=== PATIENT | female | born 1980 | race American Indian/Alaskan Native ===

== ENCOUNTER 2018-11-26 07:52 | Emergency (ER) | payer SELFPAY ==
[2018-11-26 08:30] VITALS: BP 149/91
--- NOTE | 2018-11-26 09:00 | Emergency Department Report ---
ED Abdominal Pain HPI - General Chief Complaint: Abdominal Pain Stated Complaint: ABD PAIN Time Seen by Provider: 11/26/18 08:58 Source: patient Mode of arrival: Ambulatory Limitations: No Limitations - History of Present Illness Initial Comments: Patient is a 38-year-old female that presents emergency room with complaints of bilateral lower abdominal pain 4 days. Patient states the abdominal pain is a 5 out of 10 and is better with rest and worse with movement. Patient denies nausea vomiting. Patient denies vaginal discharge. Patient denies vaginal bleeding. Patient states that she's had ectopic pregnancies in the past. Patient states she's had a bilateral tubal ligation. Patient states she is sexually active. Patient's last menstrual period was one week ago. 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 -: Sudden Location: LLQ, RLQ Migration to: no migration Severity: moderate Severity scale (0 -10): 5 Quality: cramping, aching Consistency: constant Improves With: rest Worsens With: movement Associated Symptoms: denies: nausea, vomiting, diarrhea, fever, chills, constipation, dysuria, hematemesis, hematochezia, melena, hematuria, anorexia, syncope - Related Data LMP (females 10-50): last week Previous Rx's Medication Instructions Recorded Last Taken Type Azithromycin [Zithromax Z-MARY] 250 mg PO DAILY #1 pkg 08/13/14 Unknown Rx Loratadine [Claritin] 10 mg PO DAILY #30 tablet 08/13/14 Unknown Rx Promethazine /Codeine 5 ml PO Q6H PRN #150 udc 08/13/14 Unknown Rx [Phenergan/Codeine 6.25-10 mg/5 ml] predniSONE [Deltasone] 50 mg PO QDAY #5 tab 08/13/14 Unknown Rx Ibuprofen 800 mg PO Q8HR PRN #20 tablet 11/26/18 Unknown Rx Sulfamethoxazole/Trimethoprim 1 each PO BID 7 Days #14 tablet 11/26/18 Unknown Rx [Bactrim DS TAB] Allergies Allergy/AdvReac Type Severity Reaction Status Date / Time No Known Allergies Allergy Verified 11/26/18 07:53 ED Review of Systems ROS: Stated complaint: ABD PAIN Other details as noted in HPI Constitutional: denies: chills, fever Eyes: denies: eye pain, eye discharge, vision change ENT: denies: ear pain, throat pain Respiratory: denies: cough, shortness of breath, wheezing Cardiovascular: denies: chest pain, palpitations Endocrine: no symptoms reported Gastrointestinal: abdominal pain. denies: nausea, diarrhea Genitourinary: denies: urgency, dysuria, discharge Musculoskeletal: denies: back pain, joint swelling, arthralgia Skin: denies: rash, lesions Neurological: denies: headache, weakness, paresthesias Psychiatric: denies: anxiety, depression Hematological/Lymphatic: denies: easy bleeding, easy bruising ED Past Medical Hx - Past Medical History Previous Medical History?: No Additional medical history: ectopic preg. - Surgical History Past Surgical History?: Yes Additional Surgical History: ectopic "both tubes removed" - Family History Family history: no significant - Social History Smoking Status: Never Smoker Substance Use Type: Alcohol - Medications Home Medications: Home Medications Medication Instructions Recorded Confirmed Last Taken Type Azithromycin [Zithromax Z-MARY] 250 mg PO DAILY #1 pkg 08/13/14 Unknown Rx Loratadine [Claritin] 10 mg PO DAILY #30 tablet 08/13/14 Unknown Rx Promethazine /Codeine 5 ml PO Q6H PRN #150 udc 08/13/14 Unknown Rx [Phenergan/Codeine 6.25-10 mg/5 ml] predniSONE [Deltasone] 50 mg PO QDAY #5 tab 08/13/14 Unknown Rx Ibuprofen 800 mg PO Q8HR PRN #20 tablet 11/26/18 Unknown Rx Sulfamethoxazole/Trimethoprim 1 each PO BID 7 Days #14 tablet 11/26/18 Unknown Rx [Bactrim DS TAB] ED Physical Exam - General Limitations: No Limitations General appearance: alert, in no apparent distress - Head Head exam: Present: atraumatic, normocephalic - Eye Eye exam: Present: normal appearance - ENT ENT exam: Present: mucous membranes moist - Neck Neck exam: Present: normal inspection - Respiratory Respiratory exam: Present: normal lung sounds bilaterally. Absent: respiratory distress - Cardiovascular Cardiovascular Exam: Present: regular rate, normal rhythm. Absent: systolic m urmur, diastolic murmur, rubs, gallop - GI/Abdominal GI/Abdominal exam: Present: soft, tenderness (merlyn lower quad ttp), normal bowel sounds - Extremities Exam Extremities exam: Present: normal inspection - Back Exam Back exam: Present: normal inspection - Neurological Exam Neurological exam: Present: alert, oriented X3 - Psychiatric Psychiatric exam: Present: normal affect, normal mood - Skin Skin exam: Present: warm, dry, intact, normal color. Absent: rash ED Course Vital Signs 11/26/18 11/26/18 08:12 09:05 Temperature 98.2 F Pulse Rate 85 Respiratory 16 15 Rate Blood Pressure 149/91 O2 Sat by Pulse 98 Oximetry - Reevaluation(s) Reevaluation #1: Discussed all results the patient. Patient given discharge instructions. Patient stable for discharge. Patient voiced understanding of all discharge instructions and results. 11/26/18 11:25 ED Medical Decision Making - Lab Data Result diagrams: 11/26/18 09:26 11/26/18 09:26 - Radiology Data Radiology results: report reviewed PROCEDURE: CT ABDOMEN PELVIS WO CON TECHNIQUE: Multiple contrast axial images were obtained from the lung bases to the pubic symphysis without administration of IV contrast. Reformatted sagittal and coronal images were available for review. HISTORY: abd pain COMPARISONS: None. FINDINGS: Lower thorax: Normal. Liver and biliary tree: Normal noncontrast appearance. Gallbladder: Normal. No calcified gallstones. No pericholecystic fluid or gallbladder wall thickening Spleen: Normal noncontrast appearance. Pancreas: Normal noncontrast appearance. Adrenal glands: Normal noncontrast appearance. Kidneys, ureters, and bladder: 2.1 cm low-density lesion in the inferior pole of the right kidney. 2.4 center low-density lesion in the superior pole of the right kidney No hydronephrosis. No renal or ureteral calculi. Bowel:No focal wall thickening. No evidence of obstruction. Normal appendix without surrounding inflammatory change Peritoneum:No significant lymphadenopathy. No free air or free fluid. Pelvic organs:Normal. Vasculature: Normal noncontrast appearance. Abdominal wall: Normal. Bones: Normal. IMPRESSION: No acute intra-abdominal pathology. 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 Recommend further evaluation with nonemergent ultrasound. - Medical Decision Making Patient is a 38-year-old female presents emergency with lower abdominal pain. Patient had a CT done and was negative for acute findings. Patient's UA is mildly positive for UTI. Patient will be treated with antibiotics. Patient also had complaints of irregular periods and will be referred to an RESPIRATORY THERAPIST for further outpatient treatment. Patient's labs unremarkable. Patient is stable for discharge. - Differential Diagnosis dominant. Ovarian cyst. Irregular period. UTI. Critical care attestation.: If time is entered above; I have spent that time in minutes in the direct care of this critically ill patient, excluding procedure time. ED Disposition Clinical Impression: Abdominal pain Qualifiers: Abdominal location: lower abdomen, unspecified Qualified Code(s): R10.30 - Lower abdominal pain, unspecified UTI (urinary tract infection) Qualifiers: Urinary tract infection type: acute cystitis Hematuria presence: with hematuria Qualified Code(s): N30.01 - Acute cystitis with hematuria Disposition: TO HOME OR SELFCARE Is pt being admited?: No Does the pt Need Aspirin: No Condition: Stable Instructions: Abdominal Pain (ED) Additional Instructions: Patient to follow up with primary care in 2-3 days. Patient to return to ER if condition worsens. Patient's take meds as directed. Patient to see RESPIRATORY THERAPIST for further evaluation and treatment within 2-3 days. Patient to take Tylenol or ibuprofen when necessary for pain. Patient to increase water Prescriptions: Sulfamethoxazole/Trimethoprim [Bactrim DS TAB] 1 each PO BID 7 Days #14 tablet Ibuprofen 800 mg PO Q8HR PRN #20 tablet PRN Reason: pain Referrals: CHRISTA LAW MD [Primary Care Provider] - 2-3 Days Time of Disposition: 11:33
[2018-11-26 09:52] LABS: Basophils % (Auto) 0.9 % (0.0-1.8); Eosinophils % (Auto) 0.7 % (0.0-4.3); Hematocrit 31.1 % (30.3-42.9); Hemoglobin 10.2 gm/dl (10.1-14.3); Lymphocytes # (Auto) 1.6 K/mm3 (1.2-5.4); Mean Corpuscular HGB Conc 33 % (30-34); Mean Corpuscular Volume 83 fl (79-97); Monocytes # (Auto) 0.4 K/mm3 (0.0-0.8); Monocytes % (Auto) 8.5 % (0.0-7.3); Platelet Count 367 K/mm3 (140-440); Red Blood Count 3.74 M/mm3 (3.65-5.03); Red Cell Distribution Width 13.1 % (13.2-15.2)
[2018-11-26 09:55] LABS: HCG Qualitative,Urine Negative (Negative)
[2018-11-26 09:56] LABS: Bilirubin,Urine NEG (Negative); Blood,Urine NEG (Negative); Color,Urine Yellow (Yellow); Mucus,Urine 2+ /HPF; Protein,Urine <15 mg/dL mg/dL (Negative); Urobilinogen,Urine < 2.0 mg/dL (<2.0)
[2018-11-26 10:16] LABS: Alanine Aminotransferase 9 units/L (7-56); Albumin 4.1 g/dL (3.9-5); BUN/Creatinine Ratio 26; Blood Urea Nitrogen 18 mg/dL (7-17); Hemolysis Index 12
--- NOTE | 2018-11-26 11:19 | Cat Scan Report ---
PROCEDURE: CT ABDOMEN PELVIS WO CON TECHNIQUE: Multiple contrast axial images were obtained from the lung bases to the pubic symphysis w ithout administration of IV contrast. Reformatted sagittal and coronal images were available for revi ew. HISTORY: abd pain COMPARISONS: None. FINDINGS: Lower thorax: Normal. Liver and biliary tree: Normal noncontrast appearance. Gallbladder: Normal. No calcified gallstones. No pericholecystic fluid or gallbladder wall thickening Spleen: Normal noncontrast appearance. Pancreas: Normal noncontrast appearance. Adrenal glands: Normal noncontrast appearance. Kidneys, ureters, and bladder: 2.1 cm low-density lesion in the inferior pole of the right kidney. 2. 4 center low-density lesion in the superior pole of the right kidney No hydronephrosis. No renal or u reteral calculi. Bowel:No focal wall thickening. No evidence of obstruction. Normal appendix without surrounding infla mmatory change Peritoneum:No significant lymphadenopathy. No free air or free fluid. Pelvic organs:Normal. Vasculature: Normal noncontrast appearance. Abdominal wall: Normal. Bones: Normal. IMPRESSION: No acute intra-abdominal pathology. 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 Recommend further evaluation with nonemergent ultrasound. This document is electronically signed by Destini Mills MD., November 26 2018 11:16:58 AM ET
== END 2018-11-26 12:00 | disposition home or self-care (01) ==
LOC: ED 07:52
DX: N39.0 Urinary tract infection, site not specified (principal); Z98.51 Tubal ligation status
CPT/HCPCS: 36415; 74176; 80053; 81001; 81025; 85025

== ENCOUNTER 2019-03-25 11:58 | Emergency (ER) | payer OTHER ==
--- NOTE | 2019-03-25 12:03 | Emergency Department Report ---
Blank Doc - Documentation Documentation: This is a 38-year-old female that presents with dysuria and vaginal discharge. This initial assessment/diagnostic orders/clinical plan/treatment(s) is/are subject to change based on patient's health status, clinical progression and re- assessment by fellow clinical providers in the ED. Further treatment and workup at subsequent clinical providers discretion. Patient/guardians urged not to elope from the ED as their condition may be serious if not clinically assessed and managed. Initial orders include: 1- Patient sent to [facility] for further evaluation and treatment 2- UA 4- wet prep/GC
[2019-03-25 12:04] VITALS: BP 149/75
[2019-03-25 12:22] LABS: Bilirubin,Urine NEG (Negative); Blood,Urine NEG (Negative); Color,Urine Yellow (Yellow); HCG Qualitative,Urine Negative (Negative); Mucus,Urine 2+ /HPF; Protein,Urine <15 mg/dL mg/dL (Negative); Urobilinogen,Urine < 2.0 mg/dL (<2.0); WBC,Urine < 1.0 /HPF (0.0-6.0)
--- NOTE | 2019-03-25 13:04 | Emergency Department Report ---
Chief Complaint: Urogenital-Female Stated Complaint: ABD PAIN Time Seen by Provider: 03/25/19 12:02 - HPI History of Present Illness: This 38-year-old female presents to ED complaining of burning with urination testing going on intermittently for the past 5 days. Patient denies abdominal pain, pelvic pain, fever, nausea, vomiting, diarrhea. Patient also states that she wanted to get STD screening. - ROS Review of Systems: Denies all symptoms, as noted in HPI - Exam Vital Signs: Vital Signs 03/25/19 12:02 Temperature 98.7 F Pulse Rate 87 Respiratory 16 Rate Blood Pressure 149/75 O2 Sat by Pulse 99 Oximetry Physical Exam: General: Patient is alert and oriented 3 she is in no acute distress. abdomen: Nontender to palpation, MSE screening note: Focused history and physical exam performed. Due to findings the following was ordered: ED Medical Decision Making - Medical Decision Making 38-year-old female presents presents for STD screening ED course: Urinalysis was completed and test completed. Both negative. I discussed this findings with the patient. I discussed the patient and she is worried about STD she is to follow-up with outside medical clinic. I discussed the patient that this is not a medical emergency and she will need to follow-up with outside medical clinic to be tested Discussed patient partner knowledge and treatment. Discussed the follow-up with the health department for further STD testing. Patient's alert and oriented times 3. Vital signs are normal patient is in no acute discharge. Patient will be discharged home with instructions. ED Disposition for MSE Clinical Impression: Screen for STD (sexually transmitted disease), Dysuria Disposition: DC-01 TO HOME OR SELFCARE Is pt being admited?: No Does the pt Need Aspirin: No Condition: Stable Instructions: Dysuria (ED) Additional Instructions: Make sure to follow up with [facility] medical clinic as discussed. If you have any worsening symptoms or develop new symptoms please return to ED immediately. Referrals: [facility] [Outside] - 3-5 Days [facility] [Outside] - 3-5 Days [facility] [Outside] - 3-5 Days Forms: Work/School Release Form(ED) Time of Disposition: 13:04
== END 2019-03-25 14:26 | disposition home or self-care (01) ==
LOC: ED 11:58
DX: Z11.3 Encounter for screening for infections with a predominantly sexual mode of transmission (principal); R30.0 Dysuria
CPT/HCPCS: 81001; 81025; 99283

== ENCOUNTER 2019-04-04 11:20 | Emergency (ER) | payer OTHER ==
[2019-04-04 11:51] VITALS: BP 157/93
--- NOTE | 2019-04-04 11:51 | Event Note ---
ED Screening Note Date of service: 04/04/19 Time: 11:50 ED Screening Note: 38 y/o female comes in for sorethroat since Friday after eating a hotdog. Reports that she has a history acid reflux but has not taking any medication. This initial assessment/diagnostic orders/clinical plan/treatment(s) is/are subject to change based on patients health status, clinical progression and re- assessment by fellow clinical providers in the ED. Further treatment and workup at subsequent clinical providers discretion. Patient/guardian urged not to elope from the ED as their condition may be serious if not clinically assessed and managed. Initial orders include:
--- NOTE | 2019-04-04 13:59 | Emergency Department Report ---
ED ENT HPI - General Chief complaint: Sore Throat Stated complaint: ACID REFLUX Time Seen by Provider: 04/04/19 11:46 Source: patient Mode of arrival: Ambulatory Limitations: No Limitations - History of Present Illness Initial comments: 38 y/o female comes in for sorethroat since Friday after eating a hotdog. Reports that she has a history acid reflux but has not taking any medication. MD complaint: sore throat Onset/Timin -: days(s) Location: throat Quality: burning Consistency: intermittent Worsens with: none Associated Symptoms: sore throat, other (reflux) - Related Data Previous Rx's Medication Instructions Recorded Last Taken Type Azithromycin [Zithromax Z-MARY] 250 mg PO DAILY #1 pkg 08/13/14 Unknown Rx Loratadine [Claritin] 10 mg PO DAILY #30 tablet 08/13/14 Unknown Rx Promethazine /Codeine 5 ml PO Q6H PRN #150 udc 08/13/14 Unknown Rx [Phenergan/Codeine 6.25-10 mg/5 ml] predniSONE [Deltasone] 50 mg PO QDAY #5 tab 08/13/14 Unknown Rx Fluconazole [Diflucan] 150 mg PO DAILY 1 Days #1 tablet 11/26/18 Unknown Rx Ibuprofen [Ibuprofen 800] 800 mg PO Q8HR PRN #20 tablet 11/26/18 Unknown Rx Sulfamethoxazole/Trimethoprim 1 each PO BID 7 Days #14 tablet 11/26/18 Unknown Rx [Bactrim DS TAB] Ibuprofen [Motrin 600 MG tab] 600 mg PO Q8H PRN #15 tablet 04/04/19 Unknown Rx raNITIdine HCl [Zantac] 150 mg PO BID #30 tablet 04/04/19 Unknown Rx Allergies Allergy/AdvReac Type Severity Reaction Status Date / Time No Known Allergies Allergy Verified 03/25/19 12:00 ED Dental HPI - General Chief complaint: Sore Throat Stated complaint: ACID REFLUX Time Seen by Provider: 04/04/19 11:46 Source: patient Mode of arrival: Ambulatory Limitations: No Limitations - Related Data Previous Rx's Medication Instructions Recorded Last Taken Type Azithromycin [Zithromax Z-MARY] 250 mg PO DAILY #1 pkg 08/13/14 Unknown Rx Loratadine [Claritin] 10 mg PO DAILY #30 tablet 08/13/14 Unknown Rx Promethazine /Codeine 5 ml PO Q6H PRN #150 udc 08/13/14 Unknown Rx [Phenergan/Codeine 6.25-10 mg/5 ml] predniSONE [Deltasone] 50 mg PO QDAY #5 tab 08/13/14 Unknown Rx Fluconazole [Diflucan] 150 mg PO DAILY 1 Days #1 tablet 11/26/18 Unknown Rx Ibuprofen [Ibuprofen 800] 800 mg PO Q8HR PRN #20 tablet 11/26/18 Unknown Rx Sulfamethoxazole/Trimethoprim 1 each PO BID 7 Days #14 tablet 11/26/18 Unknown Rx [Bactrim DS TAB] Ibuprofen [Motrin 600 MG tab] 600 mg PO Q8H PRN #15 tablet 04/04/19 Unknown Rx raNITIdine HCl [Zantac] 150 mg PO BID #30 tablet 04/04/19 Unknown Rx Allergies Allergy/AdvReac Type Severity Reaction Status Date / Time No Known Allergies Allergy Verified 03/25/19 12:00 ED Review of Systems ROS: Stated complaint: ACID REFLUX Other details as noted in HPI Comment: All other systems reviewed and negative Constitutional: denies: chills, fever Eyes: denies: eye pain, eye discharge, vision change ENT: denies: ear pain, throat pain Respiratory: denies: cough, shortness of breath, wheezing Cardiovascular: denies: chest pain, palpitations Endocrine: no symptoms reported Gastrointestinal: denies: abdominal pain, nausea, diarrhea Genitourinary: denies: urgency, dysuria, discharge Musculoskeletal: denies: back pain, joint swelling, arthralgia Skin: denies: rash, lesions Neurological: denies: headache, weakness, paresthesias Psychiatric: denies: anxiety, depression Hematological/Lymphatic: denies: easy bleeding, easy bruising ED Past Medical Hx - Past Medical History Hx GERD: Yes Additional medical history: ectopic preg. - Surgical History Additional Surgical History: ectopic "both tubes removed" - Social History Smoking Status: Never Smoker Substance Use Type: Alcohol - Medications Home Medications: Home Medications Medication Instructions Recorded Confirmed Last Taken Type Azithromycin [Zithromax Z-MARY] 250 mg PO DAILY #1 pkg 08/13/14 Unknown Rx Loratadine [Claritin] 10 mg PO DAILY #30 tablet 08/13/14 Unknown Rx Promethazine /Codeine 5 ml PO Q6H PRN #150 udc 08/13/14 Unknown Rx [Phenergan/Codeine 6.25-10 mg/5 ml] predniSONE [Deltasone] 50 mg PO QDAY #5 tab 08/13/14 Unknown Rx Fluconazole [Diflucan] 150 mg PO DAILY 1 Days #1 tablet 11/26/18 Unknown Rx Ibuprofen [Ibuprofen 800] 800 mg PO Q8HR PRN #20 tablet 11/26/18 Unknown Rx Sulfamethoxazole/Trimethoprim 1 each PO BID 7 Days #14 tablet 11/26/18 Unknown Rx [Bactrim DS TAB] Ibuprofen [Motrin 600 MG tab] 600 mg PO Q8H PRN #15 tablet 04/04/19 Unknown Rx raNITIdine HCl [Zantac] 150 mg PO BID #30 tablet 04/04/19 Unknown Rx ED Physical Exam - General Limitations: No Limitations General appearance: alert, in no apparent distress - Head Head exam: Present: atraumatic, normocephalic - Eye Eye exam: Present: normal appearance - ENT ENT exam: Present: mucous membranes moist - Neck Neck exam: Present: normal inspection - Respiratory Respiratory exam: Present: normal lung sounds bilaterally. Absent: respiratory distress - Cardiovascular Cardiovascular Exam: Present: regular rate, normal rhythm. Absent: systolic murmur, diastolic murmur, rubs, gallop - GI/Abdominal GI/Abdominal exam: Present: soft, normal bowel sounds - Extremities Exam Extremities exam: Present: normal inspection - Back Exam Back exam: Present: normal inspection - Neurological Exam Neurological exam: Present: alert, oriented X3 - Psychiatric Psychiatric exam: Present: normal affect, normal mood - Skin Skin exam: Present: warm, dry, intact, normal color. Absent: rash ED Course Vital Signs 04/04/19 11:47 Temperature 99.1 F Pulse Rate 71 Respiratory 18 Rate Blood Pressure 157/93 O2 Sat by Pulse 100 Oximetry ED Medical Decision Making - Medical Decision Making 38 y/o female comes in for sorethroat since Friday after eating a hotdog. Reports that she has a history acid reflux but has not taking any medication. Discharge on Zantac 150mg bid and prn Ibuprofen. Discuss. Critical care attestation.: If time is entered above; I have spent that time in minutes in the direct care of this critically ill patient, excluding procedure time. ED Disposition Clinical Impression: Acid reflux, Sore throat Disposition: DC-01 TO HOME OR SELFCARE Is pt being admited?: No Does the pt Need Aspirin: No Condition: Stable Instructions: Gastroesophageal Reflux Disease (ED) Additional Instructions: Take medication as prescribed follow up with a GI specialist. Prescriptions: Ibuprofen [Motrin 600 MG tab] 600 mg PO Q8H PRN #15 tablet PRN Reason: Pain raNITIdine HCl [Zantac] 150 mg PO BID #30 tablet Referrals: CHRISTA LAW MD [Primary Care Provider] - 3-5 Days [facility] [Provider Group] - 3-5 Days Forms: Work/School Release Form(ED)
== END 2019-04-04 14:01 | disposition home or self-care (01) ==
LOC: ED 11:20
DX: K21.9 Gastro-esophageal reflux disease without esophagitis (principal)
CPT/HCPCS: 99282

== ENCOUNTER 2022-02-05 04:24 | Emergency (ER) | payer SELFPAY ==
[2022-02-05 04:28] VITALS: BP 142/82
== END 2022-02-05 10:46 | disposition left against medical advice (07) ==
LOC: ED 04:24
DX: R07.89 Other chest pain (principal); Z53.21 Procedure and treatment not carried out due to patient leaving prior to being seen by health care provider